=== PATIENT | male | born 1960 | race Caucasian/White ===

== ENCOUNTER 2021-02-28 08:44 | Inpatient (IN) | payer MEDICAID, OTHER ==
[~2021-02-28] VITALS: Ht 165.1 cm; Wt 62.6 kg
[2021-02-28 09:44] LABS: BASOPHILS % 0.2 % (0.0-2.0); EOSINOPHILS % 0.1 % (0.0-5.0); HEMATOCRIT. 44.3 % (42.0-52.0); HEMOGLOBIN. 14.5 g/dL (14.0-18.0); LYMPHOCYTES % 11.4 % (20.0-50.0); MEAN CORPUSCULAR HEMOGLOBIN 28.7 pg (28.0-32.0); MEAN CORPUSCULAR VOLUME 87.5 fL (80.0-94.0); MEAN PLATELET VOLUME 8.4 fl (7.4-10.4); MONOCYTES % 7.9 % (2.0-8.0); NEUTROPHILS % 80.4 % (40.0-76.0); PLATELET 213 x1000/uL (130-400); RED BLOOD CELL COUNT 5.07 mill/uL (4.7-6.1)
[2021-02-28 09:51] LABS: CHLORIDE 95 mEq/L (98-107)
[2021-02-28 09:57] LABS: ETHANOL BLOOD < 10 mg/dL
[2021-02-28] MEDS ORDERED: SODIUM CHLORIDE 0.9% 1,000 ML IV ONE (10:15)
[2021-02-28] MEDS ORDERED: MAGNESIUM 2 G PREMIX 50 ML IV SCH (10:15)
[2021-02-28] MEDS: POTASSIUM CHLORIDE 20MEQ TABLET SR PO SCH ×2 (10:53→11:23)
[2021-02-28] MEDS ORDERED: POTASSIUM CHLORIDE INJ 40 MEQ in DEXT 5% WATER 250 ML IV SCH (11:00)
[2021-02-28] MEDS ORDERED: FOLIC ACID 1 MG, THIAMINE HCL 100 MG, MVI, ADULT NO.1 10 ML in DEXTROSE 5% WATER 1,000 ML IV ONE (12:15)
[2021-02-28 14:11] LABS: CLARITY URINE CLEAR (CLEAR); COLOR URINE DARK YELLOW (YELLOW); KETONES URINE TRACE (NEGATIVE); LEUKOCYTE ESTERASE URINE NEGATIVE (NEGATIVE); NITRITE URINE NEGATIVE (NEGATIVE); OCCULT BLOOD URINE NEGATIVE (NEGATIVE); PH URINE 6.5 (4.5-8.0); PROTEIN URINE TRACE (NEGATIVE); SPECIFIC GRAVITY URINE 1.018 (1.005-1.030)
[2021-02-28] MEDS ORDERED: ONDANSETRON HCL 4MG/2ML INJ IV PRN (14:15)
[2021-02-28] MEDS ORDERED: MAGNESIUM/ALUMINUM HYDROXIDE/SIMETHICONE 30ML UDC PO PRN (14:15)
[2021-02-28] MEDS ORDERED: CLONIDINE 0.1MG TABLET PO PRN (14:15)
[2021-02-28] MEDS ORDERED: IPRATROPIUM/ALBUTEROL 0.5-3(2.5)MG/3ML NEB NEB PRN (14:15)
[2021-02-28] MEDS ORDERED: ACETAMINOPHEN 325MG TABLET PO PRN ×2 (14:15)
[2021-02-28] MEDS ORDERED: NITROGLYCERIN 0.4MG TABLET SL SL PRN (14:15)
[2021-02-28] MEDS ORDERED: NA PHOS,M-B/NA PHOS,DI-BA ENEMA 118ML PR PRN (14:15)
[2021-02-28] MEDS ORDERED: GUAIFENESIN 200MG/10ML SUGAR FREE UDC PO PRN (14:15)
[2021-02-28] MEDS ORDERED: KETOROLAC 15MG/ML VIAL IV PRN (14:15)
[2021-02-28 14:28] LABS: *COCAINE SCREEN URINE NEGATIVE (NEGATIVE); METHADONE URINE SCREEN NEGATIVE (NEGATIVE); OPIATES URINE SCREEN NEGATIVE (NEGATIVE)
[2021-02-28 14:29] LABS: CANNABINOID URINE SCREEN NEGATIVE (NEGATIVE); PHENCYCLIDINE URINE SCREEN NEGATIVE (NEGATIVE)
[2021-02-28 14:30] LABS: *AMPHETAMINES SCREEN URINE NEGATIVE (NEGATIVE); *BENZODIAZEPINES SCREEN URINE NEGATIVE (NEGATIVE)
[2021-02-28 14:31] LABS: *BARBITURATES SCREEN URINE NEGATIVE (NEGATIVE)
[2021-02-28 15:56] LABS: T4 FREE 1.22 ng/dL (0.76-1.46)
[2021-02-28 16:30] VITALS: BP 136/84
[2021-02-28 17:06] VITALS: BP 136/84
[2021-02-28] MEDS: ENOXAPARIN 40MG/0.4ML SYR SUBCUT SCH (17:25)
[2021-02-28 18:45] LABS: FOLIC ACID (FOLATE) SERUM > 20.00 ng/mL (>5.38)
[2021-02-28 18:53] LABS: VITAMIN B12 SERUM 1305 pg/mL (211-911)
[2021-02-28 20:00] VITALS: BP 134/70
[2021-02-28] MEDS: ZOLPIDEM TARTRATE 5MG TABLET PO PRN (21:58)
[2021-02-28] MEDS: FAMOTIDINE 20MG TABLET PO SCH (21:58)
[2021-02-28] MEDS: ASCORBIC ACID 500 MG TABLET PO SCH (21:59)
[2021-03-01] VITALS: BP 129/68
[2021-03-01 01:00] LABS: CREATINE KINASE 242 IU/L (39-308); CREATINE KINASE MB FRACTION 2.9 ng/mL (0.5-3.6)
[2021-03-01 04:32] VITALS: BP 98/70
[2021-03-01 08:14] VITALS: BP 107/68
[2021-03-01] MEDS: CHOLECALCIFEROL (D3) 1000 UNIT TABLET PO SCH (09:35)
[2021-03-01] MEDS: FAMOTIDINE 20MG TABLET PO SCH ×2 (09:35→20:57)
[2021-03-01] MEDS: ASPIRIN 325MG EC TABLET PO SCH (09:35)
[2021-03-01] MEDS: ASCORBIC ACID 500 MG TABLET PO SCH ×2 (09:36→20:57)
[2021-03-01] MEDS: ZINC SULFATE 220 MG ( 50 ) CAPSULE PO SCH (09:36)
[2021-03-01 12:18] VITALS: BP 112/73
[2021-03-01 16:25] VITALS: BP 115/71
[2021-03-01] MEDS: ENOXAPARIN 40MG/0.4ML SYR SUBCUT SCH (18:32)
[2021-03-01 20:00] VITALS: BP 112/65
[2021-03-01] MEDS: ZOLPIDEM TARTRATE 5MG TABLET PO PRN (21:59)
[2021-03-02] VITALS: BP 111/67
[2021-03-02 04:00] VITALS: BP 115/63
[2021-03-02 08:00] VITALS: BP 122/75
[2021-03-02] MEDS: ZINC SULFATE 220 MG ( 50 ) CAPSULE PO SCH (08:15)
[2021-03-02] MEDS: FAMOTIDINE 20MG TABLET PO SCH ×2 (08:15→21:27)
[2021-03-02] MEDS: ASCORBIC ACID 500 MG TABLET PO SCH ×2 (08:16→21:26)
[2021-03-02] MEDS: ASPIRIN 325MG EC TABLET PO SCH (08:16)
[2021-03-02] MEDS: CHOLECALCIFEROL (D3) 1000 UNIT TABLET PO SCH (08:16)
[2021-03-02 09:51] LABS: BASOPHILS % 0.6 % (0.0-2.0); EOSINOPHILS % 0.7 % (0.0-5.0); HEMATOCRIT. 39.1 % (42.0-52.0); HEMOGLOBIN. 12.9 g/dL (14.0-18.0); LYMPHOCYTES % 14.8 % (20.0-50.0); MEAN CORPUSCULAR HEMOGLOBIN 29.3 pg (28.0-32.0); MEAN CORPUSCULAR VOLUME 89.2 fL (80.0-94.0); MEAN PLATELET VOLUME 8.3 fl (7.4-10.4); MONOCYTES % 8.5 % (2.0-8.0); NEUTROPHILS % 75.4 % (40.0-76.0); PLATELET 211 x1000/uL (130-400); RED BLOOD CELL COUNT 4.39 mill/uL (4.7-6.1); RED CELL DISTRIBUTION WIDTH 19.2 % (11.6-14.6)
[2021-03-02 11:23] LABS: CHLORIDE 99 mEq/L (98-107)
[2021-03-02 11:32] LABS: PHOSPHORUS 2.7 mg/dL (2.5-4.9)
[2021-03-02 12:00] VITALS: BP 123/70
[2021-03-02 12:01] LABS: CREATINE KINASE 113 IU/L (39-308)
[2021-03-02 12:03] LABS: CREATINE KINASE MB FRACTION < 1.0 ng/mL (0.5-3.6)
[2021-03-02] MEDS: ENOXAPARIN 40MG/0.4ML SYR SUBCUT SCH (14:37)
[2021-03-02 16:00] VITALS: BP 100/58
[2021-03-02] MEDS ORDERED: POTASSIUM CHLORIDE 20MEQ TABLET SR PO NR (16:00)
[2021-03-02 20:00] VITALS: BP 115/74
[2021-03-02] MEDS: ZOLPIDEM TARTRATE 5MG TABLET PO PRN (21:26)
[2021-03-03] VITALS: BP 119/77
[2021-03-03 04:00] VITALS: BP 114/66
[2021-03-03 08:00] VITALS: BP 111/69
[2021-03-03] MEDS: ZINC SULFATE 220 MG ( 50 ) CAPSULE PO SCH (09:56)
[2021-03-03] MEDS: ASCORBIC ACID 500 MG TABLET PO SCH ×2 (09:56→20:46)
[2021-03-03] MEDS: CHOLECALCIFEROL (D3) 1000 UNIT TABLET PO SCH (09:56)
[2021-03-03] MEDS: FAMOTIDINE 20MG TABLET PO SCH ×2 (09:56→20:46)
[2021-03-03] MEDS: ASPIRIN 325MG EC TABLET PO SCH (09:57)
[2021-03-03 11:25] VITALS: BP 111/69
[2021-03-03 12:00] VITALS: BP 123/75
[2021-03-03] MEDS: ENOXAPARIN 40MG/0.4ML SYR SUBCUT SCH (15:34)
[2021-03-03 20:00] VITALS: BP 126/75
[2021-03-03] MEDS: ZOLPIDEM TARTRATE 5MG TABLET PO PRN (20:46)
[2021-03-04] VITALS: BP 120/60
[2021-03-04 04:00] VITALS: BP 123/76
[2021-03-04 08:00] VITALS: BP 105/70
[2021-03-04] MEDS: ZINC SULFATE 220 MG ( 50 ) CAPSULE PO SCH (09:44)
[2021-03-04] MEDS: CHOLECALCIFEROL (D3) 1000 UNIT TABLET PO SCH (09:44)
[2021-03-04] MEDS: ASCORBIC ACID 500 MG TABLET PO SCH ×2 (09:44→21:01)
[2021-03-04] MEDS: ASPIRIN 325MG EC TABLET PO SCH (09:44)
[2021-03-04] MEDS: FAMOTIDINE 20MG TABLET PO SCH ×2 (09:44→21:01)
[2021-03-04 12:00] VITALS: BP 124/75
[2021-03-04 16:00] VITALS: BP 133/84
[2021-03-04] MEDS: ENOXAPARIN 40MG/0.4ML SYR SUBCUT SCH (16:36)
[2021-03-04 20:29] VITALS: BP 129/72
[2021-03-04] MEDS: DOCUSATE SODIUM 100MG CAPSULE PO PRN (21:02)
[2021-03-04] MEDS: ZOLPIDEM TARTRATE 5MG TABLET PO PRN (21:02)
[2021-03-05] VITALS: BP 126/86
[2021-03-05 04:00] VITALS: BP 122/74
[2021-03-05 08:09] VITALS: BP 138/76
[2021-03-05] MEDS: ZINC SULFATE 220 MG ( 50 ) CAPSULE PO SCH (09:51)
[2021-03-05] MEDS: DOCUSATE SODIUM 100MG CAPSULE PO PRN (09:51)
[2021-03-05] MEDS: CHOLECALCIFEROL (D3) 1000 UNIT TABLET PO SCH (09:51)
[2021-03-05] MEDS: ASPIRIN 325MG EC TABLET PO SCH (09:51)
[2021-03-05] MEDS: ASCORBIC ACID 500 MG TABLET PO SCH ×2 (09:52→20:53)
[2021-03-05] MEDS: FAMOTIDINE 20MG TABLET PO SCH ×2 (09:52→20:53)
[2021-03-05 12:09] VITALS: BP 165/70
[2021-03-05 16:04] VITALS: BP 143/81
[2021-03-05] MEDS: ENOXAPARIN 40MG/0.4ML SYR SUBCUT SCH (16:28)
[2021-03-05 20:00] VITALS: BP 134/77
[2021-03-05] MEDS: ZOLPIDEM TARTRATE 5MG TABLET PO PRN (20:53)
[2021-03-06] VITALS: BP 134/72
[2021-03-06 04:00] VITALS: BP 105/63
[2021-03-06 08:00] VITALS: BP 97/47
[2021-03-06] MEDS: ASPIRIN 325MG EC TABLET PO SCH (09:19)
[2021-03-06] MEDS: CHOLECALCIFEROL (D3) 1000 UNIT TABLET PO SCH (09:19)
[2021-03-06] MEDS: ASCORBIC ACID 500 MG TABLET PO SCH ×2 (09:19→21:20)
[2021-03-06] MEDS: ZINC SULFATE 220 MG ( 50 ) CAPSULE PO SCH (09:19)
[2021-03-06] MEDS: FAMOTIDINE 20MG TABLET PO SCH ×2 (09:20→21:20)
[2021-03-06 12:00] VITALS: BP 95/61
[2021-03-06] MEDS: ENOXAPARIN 40MG/0.4ML SYR SUBCUT SCH (15:07)
[2021-03-06 16:00] VITALS: BP 100/62
[2021-03-06 20:00] VITALS: BP 107/64
[2021-03-07] VITALS: BP 99/61
[2021-03-07 04:00] VITALS: BP 125/60
[2021-03-07 08:00] VITALS: BP 101/64
[2021-03-07] MEDS: ASCORBIC ACID 500 MG TABLET PO SCH ×2 (09:09→20:53)
[2021-03-07] MEDS: CHOLECALCIFEROL (D3) 1000 UNIT TABLET PO SCH (09:09)
[2021-03-07] MEDS: ZINC SULFATE 220 MG ( 50 ) CAPSULE PO SCH (09:09)
[2021-03-07] MEDS: ASPIRIN 325MG EC TABLET PO SCH (09:09)
[2021-03-07] MEDS: FAMOTIDINE 20MG TABLET PO SCH ×2 (09:10→20:53)
[2021-03-07 12:00] VITALS: BP 114/67
[2021-03-07] MEDS: ENOXAPARIN 40MG/0.4ML SYR SUBCUT SCH (15:05)
[2021-03-07 16:00] VITALS: BP 128/76
[2021-03-07 20:00] VITALS: BP 127/74
[2021-03-08] VITALS: BP 117/64
[2021-03-08 04:00] VITALS: BP 99/57
[2021-03-08 08:00] VITALS: BP 97/59
[2021-03-08] MEDS: ASPIRIN 325MG EC TABLET PO SCH (10:07)
[2021-03-08] MEDS: CHOLECALCIFEROL (D3) 1000 UNIT TABLET PO SCH (10:07)
[2021-03-08] MEDS: ZINC SULFATE 220 MG ( 50 ) CAPSULE PO SCH (10:07)
[2021-03-08] MEDS: ASCORBIC ACID 500 MG TABLET PO SCH (10:07)
[2021-03-08] MEDS: FAMOTIDINE 20MG TABLET PO SCH (10:08)
[2021-03-08 12:00] VITALS: BP 98/63
[2021-03-08] MEDS: ENOXAPARIN 40MG/0.4ML SYR SUBCUT SCH (14:25)
[2021-03-08 14:36] VITALS: BP 95/59
== END 2021-03-08 15:34 | disposition home or self-care (01) | DRG 52 ==
LOC: ER 08:44 → 6WST 13:17 → EDBEDREQ 13:22 → ENRESERV 14:58 → 6WST 17:30 → 6EST 03-06 17:43
PROVIDERS: ADMIT Internal Medicine; ATTEND Internal Medicine
DX: G93.40 Encephalopathy, unspecified (principal); K74.60 Unspecified cirrhosis of liver; E87.1 Hypo-osmolality and hyponatremia; E87.6 Hypokalemia; R74.01 Elevation of levels of liver transaminase levels; F10.129 Alcohol abuse with intoxication, unspecified; E80.6 Other disorders of bilirubin metabolism; Y90.9 Presence of alcohol in blood, level not specified
CPT/HCPCS: 36415; 70551; 80053; 80061; 80305; 80320; 81003; 82140; 82550; 82553; 82607; 82746; 83036; 83540; 83550; 83615; 83735; 84100; 84145; 84439; 84443; 84484; 85025; 85379; 93970; 97110; 97116; 97162; 97166; 97530; 97535; 99285; J1650; J1885; J2405; J3411; J3475; J3480; J3490; J7060; J7070; G0480